=== PATIENT | female | born 1985 | race African-American/Black ===

== ENCOUNTER 2017-01-23 18:51 | Emergency (ER) | payer SELFPAY ==
[~2017-01-23] VITALS: Ht 165.1 cm; Wt 68.0 kg
[2017-01-23 23:10] VITALS: BP 140/83
== END 2017-01-24 07:00 | disposition left against medical advice (07) ==
LOC: ER 01-24 06:57
DX: Z53.21 Procedure and treatment not carried out due to patient leaving prior to being seen by health care provider (principal)
CPT/HCPCS: 81025

== ENCOUNTER 2023-08-08 11:16 | Emergency (ER) | payer BC ==
[~2023-08-08] VITALS: Ht 154.9 cm; Wt 68.0 kg
[2023-08-08 11:30] VITALS: BP 120/88; PULSE 79; RESP 18; TEMP 98.4; O2SAT 100
[2023-08-08] MEDS ORDERED: ACET325T52 MT (11:56)
[2023-08-08] MEDS ORDERED: OFLO5DRO4 RIGHT EAR (11:56)
== END 2023-08-08 12:06 | disposition home or self-care (01) ==
LOC: ER 11:16
DX: H60.91 Unspecified otitis externa, right ear (principal)
CPT/HCPCS: 99283

== ENCOUNTER 2024-08-15 17:24 | Emergency (ER) | payer BC, MEDICAID ==
[~2024-08-15] VITALS: Ht 154.9 cm; Wt 68.2 kg
[~2024-08-15 17:24] MED LIST: ACET-3800 MT; OFLO5DRO4 RIGHT EAR
[2024-08-15 17:39] VITALS: O2SAT 100
[2024-08-15 17:59] VITALS: BP 121/80; PULSE 101; RESP 18; TEMP 36.8; O2SAT 100
[2024-08-15 19:02] LABS: CLARITY URINE TURBID (CLEAR); COLOR URINE YELLOW (YELLOW); GLUCOSE URINE NEGATIVE (NEGATIVE); KETONES URINE TRACE (NEGATIVE); LEUKOCYTE ESTERASE URINE 3+ (NEGATIVE); NITRITE URINE POSITIVE (NEGATIVE); OCCULT BLOOD URINE 2+ (NEGATIVE); PROTEIN URINE 2+ (NEGATIVE); SPECIFIC GRAVITY URINE 1.015 (1.005-1.030)
[2024-08-15] MEDS ORDERED: NITR100C MT (19:14)
[2024-08-15] MEDS ORDERED: PHEN-815 MT (19:16)
[2024-08-15 19:33] LABS: BACTERIA URINE 3+; WBC URINE TNTC /hpf (0-2)
== END 2024-08-15 19:41 | disposition home or self-care (01) ==
LOC: ER 17:24
DX: N39.0 Urinary tract infection, site not specified (principal); Z79.899 Other long term (current) drug therapy
CPT/HCPCS: 81003; 81025; 87186; 99283